=== PATIENT | female | born 1985 ===

== ENCOUNTER 2021-12-06 07:01 | Emergency (ER) | payer BC, OTHER ==
--- NOTE | 2021-12-06 08:42 | EDPHYS ---
Physician Documentation [facility] Name: Nevin Aaron Age: 36 yrs Sex: Female : 1985 Arrival Date: 12/06/2021 Time: 07:05 Bed 11 Private MD: ED Physician Aj Adkins HPI: 12/06 07:39 This 36 yrs old Female presents to ER via Ambulatory with complaints of Sore Throat. ma2 07:39 The patient presents with sore throat. The patient has shortness of breath at rest. ma2 Severity of symptoms: in the emergency department the symptoms. Associated signs and symptoms: Pertinent negatives: non-productive cough, dizziness, loss of consciousness, nausea, numbness in extremities, visual changes. Severity of symptoms: At their worst the symptoms were mild. FISHER: 07:14 LMP N/A - control method, IUD ss Historical: - Allergies: 07:14 No Known Allergies; ss - Home Meds: 07:14 None [Active]; ss - PMHx: 07:14 None; ss - PSHx: 07:14 None; ss - Immunization history:: Client reports receiving the 2nd dose of the Covid vaccine. - Social history:: Smoking status: Patient denies any tobacco usage or history of. - Family history:: not pertinent. ROS: 07:39 Constitutional: Negative for fever, chills, and weight loss. ma2 07:39 All other systems are negative. Exam: 07:39 Constitutional: This is a well developed, well nourished patient who is awake, alert, ma2 and in no acute distress. Head/Face: Normocephalic, atraumatic. Eyes: Pupils equal round and reactive to light, extra-ocular motions intact. Lids and lashes normal. Conjunctiva and sclera are non-icteric and not injected. Cornea within normal limits. Periorbital areas with no swelling, redness, or edema. ENT: oropharynx is red, otherwise, Nares patent. No nasal discharge, no septal abnormalities noted. Tympanic membranes are normal and external auditory canals are clear. Oropharynx with no redness, swelling, or masses, exudates, or evidence of obstruction, uvula midline. Mucous membranes moist. Neck: Trachea midline, no thyromegaly or masses palpated, and no cervical lymphadenopathy. Supple, full range of motion without nuchal rigidity, or vertebral point tenderness. No Meningismus. Chest/axilla: Normal chest wall appearance and motion. Nontender with no deformity. No lesions are appreciated. Cardiovascular: Regular rate and rhythm with a normal S1 and S2. No gallops, murmurs, or rubs. Normal PMI, no JVD. No pulse deficits. Respiratory: Lungs have equal breath sounds bilaterally, clear to auscultation and percussion. No rales, rhonchi or wheezes noted. No increased work of breathing, no retractions or nasal flaring. Abdomen/GI: Soft, non-tender, with normal bowel sounds. No distension or tympany. No guarding or rebound. No evidence of tenderness throughout. Back: No spinal tenderness. No costovertebral tenderness. Full range of motion. Skin: Warm, dry with normal turgor. Normal color with no rashes, no lesions, and no evidence of cellulitis. MS/ Extremity: Pulses equal, no cyanosis. Neurovascular intact. Full, normal range of motion. Neuro: Awake and alert, GCS 15, oriented to person, place, time, and situation. Cranial nerves II-XII grossly intact. Motor strength 5/5 in all extremities. Sensory grossly intact. Cerebellar exam normal. Normal gait. Vital Signs: 07:13 BP 106 / 79; Pulse 113; Resp 14; Temp 98.8(O); Pulse Ox 100% on R/A; Weight 49.9 kg; ss Height 5 ft. 0 in. (152.40 cm); Pain 6/10; 07:13 Body Mass Index 21.48 (49.90 kg, 152.40 cm) ss MDM: 07:09 Patient medically screened. ma2 07:39 Differential diagnosis: Bronchitis group A strep tonsillitis, pharyngitis, upper ma2 respiratory infection. Data reviewed: vital signs, nurses notes. Counseling: I had a detailed discussion with the patient and/or guardian regarding: the historical points, exam findings, and any diagnostic results supporting the discharge/admit diagnosis, the presence of at least one elevated blood pressure reading (>120/80) during this emergency department visit, the need for outpatient follow up. Response to treatment: There is no appreciated change of the patient's symptoms at this time, declined rx in er . 12/06 07:22 Order name: Strep; Complete Time: 08:41 ss 12/06 08:06 Order name: Throat Culture EDMS Administered Medications: No medications were administered Disposition Summary: 12/06/21 08:41 Discharge Ordered Location: Home ma2 Condition: Stable ma2 Diagnosis - Acute pharyngitis, unspecified ma2 Followup: ma2 - With: Private Physician - When: Tomorrow - Reason: If symptoms return, Continuance of care Discharge Instructions: - Discharge Summary Sheet ma2 - Pharyngitis ma2 Forms: - Medication Reconciliation Form ma2 - Thank You Letter ma2 - Antibiotic Education ma2 - Prescription Opioid Use ma2 Prescriptions: - Lidocaine Viscous - take 3 milligram by ORAL route 3 times per day; 200 milligram; Refills: 0, ma2 Product Selection Permitted - Diclofenac Sodium 75 mg Oral Tablet Sustained Release - take 1 tablet by ORAL route 2 times per day; 30 tablet; Refills: 0, Product ma2 Selection Permitted - Zithromax Z-Yang 250 mg Oral Tablet - take 1 tablet by ORAL route as directed for 5 days Day 1 - take two (2) tablets ma2 one time. Day 2, 3, 4 , 5 take one (1) tablet once daily.; 6 tablet; Refills: 0, Product Selection Permitted - Medrol (Yang) 4 mg Oral Tablets, Dose Pack - take 1 tablet by ORAL route as directed - follow package instructions; 1 ma2 packet; Refills: 0, Product Selection Permitted Signatures: Dispatcher [employer] Mouna Burrell RN RN Aj Adkins MD MD mi2
--- NOTE | 2021-12-06 08:42 | ER ---
Nurse's Notes [facility] Name: Nevin Aaron Age: 36 yrs Sex: Female : 1985 Arrival Date: 12/06/2021 Time: 07:05 Bed 11 Private MD: Diagnosis: Acute pharyngitis, unspecified Presentation: 12/06 07:13 Chief complaint: Patient states: sore throat that began 2 days ago. Worse after yelling ss at dog. Coronavirus screen: Client denies travel out of the [place] in the last 14 days. Ebola Screen: Patient denies exposure to infectious person. Patient denies travel to an Ebola-affected area in the 21 days before illness onset. Initial Sepsis Screen: Does the patient meet any 2 criteria? No. Patient's initial sepsis screen is negative. Does the patient have a suspected source of infection? No. Patient's initial sepsis screen is negative. Risk Assessment: Do you want to hurt yourself or someone else? Patient reports no desire to harm self or others. Onset of symptoms was December 04, 2021. 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 - Social history:: Smoking status: Patient denies any tobacco usage or history of. - Family history:: not pertinent. Screenin:15 Abuse screen: Denies threats or abuse. Denies injuries from another. Nutritional ss screening: No deficits noted. Tuberculosis screening: Never had TB. Fall Risk None identified. Assessment: 07:15 General: Appears in no apparent distress. Behavior is calm, cooperative. General: ss Denies fever. Pain: Complains of pain in throat Pain currently is 6 out of 10 on a pain scale. at worst was 10 out of 10 on a pain scale. Quality of pain is described as burning, sore Pain began 2-3 days ago. Is continuous. Neuro: Colon Agitation-Sedation Scale (RASS): 0 - Alert and Calm Level of Consciousness is awake, alert, obeys commands. Cardiovascular: Rhythm is sinus tachycardia. Respiratory: Airway is patent Respiratory effort is even, unlabored, Respiratory pattern is regular, symmetrical. GI: Patient currently denies diarrhea, nausea, vomiting. : Denies burning with urination. EENT: Nares are clear Oral mucosa is moist. Throat is reddened Reports pain when swallowing. 08:06 Reassessment: Strep Negative. Awaiting disposition. Vital Signs: 07:13 BP 106 / 79; Pulse 113; Resp 14; Temp 98.8(O); Pulse Ox 100% on R/A; Weight 49.9 kg; ss Height 5 ft. 0 in. (152.40 cm); Pain 6/10; 07:13 Body Mass Index 21.48 (49.90 kg, 152.40 cm) ED Course: 07:05 Patient arrived in ED. kz 07:09 Aj Adkins MD is Attending Physician. ma2 07:14 Triage completed. ss 07:14 Arm band placed on right wrist. ss 07:15 Patient has correct armband on for positive identification. ss 07:20 Mouna Lopez RN is Primary Nurse. ss 07:27 Strep Sent. 09:02 No provider procedures requiring assistance completed. Patient did not have IV access ss during this emergency room visit. Administered Medications: No medications were administered Medication: 07:15 VIS not applicable for this client. Outcome: 08:41 Discharge ordered by . ma2 09:02 Discharged to home ambulatory. 09:02 Condition: good 09:02 Discharge instructions given to patient, family, Instructed on discharge instructions, follow up and referral plans. medication usage, Demonstrated understanding of instructions, follow-up care, medications, Prescriptions given X 4. 09:03 Patient left the ED. Signatures: Mouna Lopez RN RN Aj Adkins MD MD ma2 Zapata, Kelly kz
[2021-12-06 09:24] VITALS: BP 106/79; TEMP 98.8; O2SAT 100
== END 2021-12-06 09:03 | disposition home or self-care (01) ==
LOC: ER 07:01
DX: J02.9 Acute pharyngitis, unspecified (principal)
CPT/HCPCS: 87070; 87081; 99284